=== PATIENT | female | born 1975 | race American Indian/Alaskan Native ===

== ENCOUNTER 2016-09-06 22:23 | Emergency (ER) | payer OTHER ==
[2016-09-06 22:38] VITALS: BP 170/90; PULSE 81; TEMP 98.1; BMI 35.2
--- NOTE | 2016-09-06 23:49 | PDOC ---
History of Present Illness - General Stated Complaint: RASH,ALLERGY REACTION Time Seen by Provider: 09/06/16 23:12 - History of Present Illness Initial Comments: 09/06/16 23:48 CHIEF COMPLAINT: rash HISTORY OF PRESENT ILLNESS: 41 yo F with hx of migraines presents to ED with worsening rash x 1 week. 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 I've had reaction like this before but never this bad. I came tonight because the Aquaphor stopped working and I'm really itchy." Patient denies fever, chills, nausea, vomiting, diarrhea , difficulty breathing, speaking or swallowing. Denies swelling of throat, mouth, lips, or tongue. No recent travel or sick contacts. PAST MEDICAL HISTORY: Denies past medical history FAMILY HISTORY: Denies SOCIAL HISTORY: Lives at home with . 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 Denies tobacco, alcohol, illicit drug use. ALLERGIES: latex, natural rubber, shrimp REVIEW OF SYSTEMS General/Constitutional: Denies fever or chills. Denies weakness, weight change. HEENT: Denies change in vision. Denies ear pain or discharge. Denies sore throat. Cardiovascular: Denies chest pain or shortness of breath. Respiratory: Denies cough, wheezing, or hemoptysis. Gastrointestinal: Denies nausea, vomiting, diarrhea or constipation. Denies rectal bleeding. Genitourinary: Denies dysuria, frequency, or change in urination. Musculoskeletal: Denies joint or muscle swelling or pain. Denies neck or back pain. Skin and breasts: Worsening rash x 1 week. PHYSICAL EXAM General Appearance: Well-appearing, appropriately dressed. No apparent distress , no intoxication. HEENT: EOMI, PERRLA, normal ENT inspection, normal voice, TMs normal, pharynx normal. No conjunctival pallor. No photophobia, scleral icterus. Neck: Supple. Trachea midline. No tenderness, rigidity, carotid bruit, stridor , lymphadenopathy, or thyromegaly. Respiratory/Chest: Lungs CTAB. No shortness of breath, chest tenderness, respiratory distress, accessory muscle use. No crackles, rales, rhonchi, stridor , wheezing, dullness Cardiovascular: RRR. S1, S2. No JVD, murmur, bradycardia, tachycardia. Vascular Pulses: Dorsalis-Pedis (R): 2+, Dorsalis-Pedis (L): 2+ Gastrointestinal/Abdominal: Normal bowel sounds. Abdomen soft, non-distended. No tenderness or rebound tenderness. No organomegaly, pulsatile mass, guarding , hernia, hepatomegaly, splenomegaly. Lymphatic: No adenopathy, tenderness. Musculoskeletal/Extremities: Normal inspection. FROM of all extremities, normal capillary refill. Pelvis Stable. No CVA tenderness. No tenderness to extremities, pedal edema, swelling, erythema or deformity. Integumentary: Multiple plaque-like lesions to dorsal and palmar aspect of hands bilaterally. Satellite lesions to dorsal aspect of left and right proximal forearm, shins bilaterally, and left shoulder. Appropriate color, dry, warm. No cyanosis, erythema, jaundice or rash Neurologic: gauge maker apprentice II-XII intact. Fully oriented, alert. Appropriate mood/affect. Motor strength 5/5. No appreciable EOM palsy, facial droop or sensory deficit. 09/06/16 23:53 Past History - Past Medical History Allergies/Adverse Reactions: Allergies Allergy/AdvReac Type Severity Reaction Status Date / Time Latex, Natural Rubber Allergy Verified 09/06/16 22:34 shrimp Allergy Verified 09/06/16 22:34 Home Medications: Ambulatory Orders Loratadine [Claritin] 10 mg PO DAILY #10 tablet 09/06/16 Triamcinolone 0.1% Cream [Aristocort 0.1% Cream -] 1 applic TP TID #1 tube 09/06 - Psycho/Social/Smoking Cessation Hx Suicidal Ideation: No Smoking History: Never smoked *Physical Exam - Vital Signs Last Vital Signs Temp Pulse Resp BP Pulse Ox 98.1 F 81 16 170/90 98 09/06/16 22:36 09/06/16 22:36 09/06/16 22:36 09/06/16 22:36 09/06/16 22:36 Medical Decision Making - Medical Decision Making 09/06/16 23:56 41 yo F with hx of migraines presents to ED with worsening rash. Clinical presentation consistent with contact dermatitis. Will discharge to home with topical steroid and antihistamine with close derm follow up. -Triamcinolone 0.1% cream -Claritin po Advised patient to f/u with dermatology within the next week. Advised patient of signs and symptoms for return to ED. Patient verbalized udnerstanding and agrees to plan. *DC/Admit/Observation/Transfer Diagnosis at time of Disposition: Rash and nonspecific skin eruption - Discharge Dispostion Disposition: HOME Condition at time of disposition: Stable Admit: No - Prescriptions Prescriptions: Triamcinolone 0.1% Cream [Aristocort 0.1% Cream -] 1 applic TP TID #1 tube Loratadine [Claritin] 10 mg PO DAILY #10 tablet - Referrals Referrals: Arian Landaverde MD [Primary Care Provider] - Tala Trimble MD [Staff Physician] - - Patient Instructions Printed Discharge Instructions: DI for Rash Additional Instructions: Please apply medication as prescribed and follow up with lodge attendant within the next 2-3 days. Please keep your appointment with the display carver for further evaluation of your contact allergies. If the rash spreads to your face, or you develop any swelling of the throat, lips, mouth, tongue, or if you have difficulty breathing, speaking, or swallowing, please return to the ER immediately. - Post Discharge Activity Work/School Note: Back to Work
[2016-09-06] MEDS ORDERED: diphenhydrAMINE HCL 25 MG CAPSULE (FP) PO ONE (23:59)
[2016-09-07] MEDS ORDERED: diphenhydrAMINE HCL 25 MG CAPSULE (FP) PO ONE (00:02)
== END 2016-09-07 00:10 | disposition home or self-care (01) ==
LOC: JER 22:23
DX: L23.89 Allergic contact dermatitis due to other agents (principal); Z91.040 Latex allergy status
CPT/HCPCS: 99281-25

== ENCOUNTER 2019-08-19 07:21 | Emergency (ER) | payer OTHER ==
[2019-08-19 07:56] VITALS: TEMP 99.8; BMI 36.1
[2019-08-19] MEDS ORDERED: FAMOTIDINE 20 MG TABLET PO ONE (08:32)
[2019-08-19] MEDS ORDERED: MAG HYDROX/AL HYDROX/SIMETH 30 ML UNIT-DOSE CUP PO ONE (08:32)
[2019-08-19] MEDS ORDERED: MAG HYDROX/AL HYDROX/SIMETH 30 ML UNIT-DOSE CUP ONE (08:54)
[2019-08-19] MEDS ORDERED: FAMOTIDINE 20 MG TABLET ONE (08:54)
--- NOTE | 2019-08-19 09:04 | PDOC ---
History of Present Illness - General Chief Complaint: Pain Stated Complaint: STOMACH ACHE Time Seen by Provider: 08/19/19 08:17 History Source: Patient Exam Limitations: Clinical Condition - History of Present Illness Travel History: No Initial Comments: 08/19/19 09:35 Patient with past medical history of GERD presented with complaint of 1 day history of epigastric pain and 2 episodes of loose stool. Patient daughter sick at home with gastroenteritis symptoms for same.. Patient denies nausea, vomiting, fever, chills, shortness of breath, constipation, chest pain. Patient reports taking Nexium yesterday for symptoms which has been helpful in the epigastric pain. Denies any other symptoms Timing/Duration: reports: intermittent Quality: reports: cramping Abdominal Pain Onset Location: reports: epigastric Pain Radiation: reports: no radiation Activities at Onset: reports: none Past History - Past Medical History Allergies/Adverse Reactions: Allergies Allergy/AdvReac Type Severity Reaction Status Date / Time Latex, Natural Rubber Allergy Verified 08/19/19 07:52 shrimp Allergy Verified 08/19/19 07:52 Home Medications: Ambulatory Orders Loratadine [Claritin] 10 mg PO DAILY #10 tablet 09/06/16 Triamcinolone 0.1% Cream [Aristocort 0.1% Cream -] 1 applic TP TID #1 tube 09/06 Famotidine [Pepcid -] 40 mg PO DAILY #7 tablet 08/19/19 Mag Hydrox/Aluminum Hyd/Simeth [Maalox Advanced Suspension] 30 ml PO Q8H PRN # 200 ml 08/19/19 CVA: No COPD: No - Immunization History Immunization Up to Date: Yes - Psycho Social/Smoking Cessation Hx Smoking History: Never smoked Information on smoking cessation initiated: No Hx Alcohol Use: No Drug/Substance Use Hx: No Abd/GI Specific PMHX - Complaint Specific PMHX Colitis: No Diverticulitis: No Gall Bladder Disease: No GERD: Yes Hepatitis: No Irritable Bowel Synd (IBS): No Pancreatitis: No GI Ulcer Disease: No Review of Systems - Review of Systems Able to Perform ROS?: Yes Is the patient limited Yoruba proficient: No Constitutional: No: Chills, Fever, Malaise HEENTM: No: Symptoms Reported, See HPI, Eye Pain, Blurred Vision, Tearing, Recent change in vision, Double Vision, Cataracts, Ear Pain, Ocular Prothesis, Ear Discharge, Nose Pain, Nose Congestion, Tinnitus, Nose Bleeding, Hearing Loss , Throat Pain, Throat Swelling, Mouth Pain, Dental Problems, Difficulty Swallowing, Mouth Swelling, Other Respiratory: No: Symptoms reported, See HPI, Cough, Orthopnea, Shortness of Breath, SOB with Exertion, SOB at Rest, Stridor, Wheezing, Productive cough, Hemoptysis, Other Cardiac (ROS): No: Symptoms Reported, See HPI, Chest Pain, Edema, Irregular Heart Rate, Lightheadedness, Palpitations, Syncope, Chest Tightness, Other ABD/GI: Yes: Symptoms Reported, See HPI, Abdominal cramping (epigastric). No: Abd. Pain w/ defecation, Constipated, Diarrhea, Nausea, Poor Appetite, Rectal Bleeding, Vomiting, Indigestion : No: Symptoms Reported, Urgency Musculoskeletal: No: Symptoms Reported All Other Systems: Reviewed and Negative *Physical Exam - Vital Signs Last Vital Signs Temp Pulse Resp BP Pulse Ox 99.8 F H 104 H 17 139/81 96 08/19/19 07:53 08/19/19 07:53 08/19/19 07:53 08/19/19 07:53 08/19/19 07:53 - Physical Exam 08/19/19 09:04 GENERAL: Well developed, well nourished. Awake and alert. No acute distress. HEENT: Normocephalic, atraumatic. PERRLA, EOMI. No conjunctival pallor. Sclera are non-icteric. Moist mucous membranes. Oropharynx is clear. NECK: Supple. Full ROM. CARDIOVASCULAR: Regular rate and rhythm. No murmurs, rubs, or gallops. Distal pulses are 2+ and symmetric. PULMONARY: No evidence of respiratory distress. Lungs clear to auscultation bilaterally. No wheezing, rales or rhonchi. ABDOMINAL: Soft. Non-tender. Non-distended. No rebound or guarding. No organomegaly. Normoactive bowel sounds. MUSCULOSKELETAL Normal range of motion at all joints. EXTREMITIES: No cyanosis. No clubbing. No edema. No calf tenderness. SKIN: Warm and dry. Normal capillary refill. No rashes. No jaundice. NEUROLOGICAL: Alert, awake, appropriate. Gait is normal without ataxia. PSYCHIATRIC: Cooperative. Good eye contact. Appropriate mood General Appearance: Yes: Nourished, Appropriately Dressed. No: Apparent Distress ED Treatment Course - LABORATORY CBC & Chemistry Diagram: 08/19/19 08:42 08/19/19 08:42 - RADIOLOGY Radiology Studies Ordered: Category Date Time Status ABDOMEN US -LIMITED [US] Stat Ultrasound 08/19/19 08:33 Ordered - Medications Given in the ED: ED Medications Discontinued Medications Generic Name Dose Route Start Last Admin Trade Name Freq PRN Reason Stop Dose Admin Al Hydroxide/Mg Hydroxide 30 ml 08/19/19 08:32 08/19/19 08:57 Mylanta Oral Suspension - PO 08/19/19 08:33 30 ml ONCE ONE Administration Famotidine 40 mg 08/19/19 08:32 08/19/19 08:57 Pepcid - PO 08/19/19 08:33 40 mg ONCE ONE Administration Medical Decision Making - Medical Decision Making 08/19/19 09:36 Patient with past medical history of GERD presented with complaint of 1 day history of epigastric pain and 2 episodes of loose stool. Patient daughter sick at home with gastroenteritis symptoms for same.. Patient denies nausea, vomiting, fever, chills, shortness of breath, constipation, chest pain. Patient reports taking Nexium yesterday for symptoms which has been helpful in the epigastric pain. Denies any other symptoms Clinical exam significant for mild epigastric tenderness without guarding or rebound otherwise unremarkable exam. Normal cardio exam and lungs clear to auscultation bilateral. Patient symptoms likely GERD versus gastritis versus less likely cholecystitis. CBC, CMP and lipase lab ordered. Abdominal ultrasound ordered to rule out cholecystitis. Pepcid 40 mg p.o. and Maalox 30 mL p.o. given for symptoms. Treat based on lab and imaging results 08/19/19 11:26 Abdominal ultrasound unremarkable. Patient is symptomatic now. Symptoms likely caused by GERD. Patient stable for discharge on Pepcid and Maalox PRN for abdominal discomfort with GI follow-up. Discharge - Discharge Information Problems reviewed: Yes Clinical Impression/Diagnosis: Epigastric abdominal pain, GERD without esophagitis Condition: Improved Disposition: HOME - Admission No - Additional Discharge Information Prescriptions: Famotidine [Pepcid -] 40 mg PO DAILY #7 tablet Mag Hydrox/Aluminum Hyd/Simeth [Maalox Advanced Suspension] 30 ml PO Q8H PRN # 200 ml PRN Reason: abdominal discomfort - Follow up/Referral Referrals: Arian Landaverde MD [Primary Care Provider] - Chiki Duran MD [Staff Physician] - - Patient Discharge Instructions Patient Printed Discharge Instructions: DI for Gastroesophageal Reflux Disease (GERD), GERD Diet Additional Instructions: Your blood work was normal. Your abdominal ultrasound shows no abnormality. Your symptoms likely caused by gas pain from acid. Take prescribed medication as prescribed for abdominal discomfort. Follow-up referred GI doctor if symptoms persist for more than 3 days otherwise follow-up with your primary care - Post Discharge Activity Work/Back to School Note: Back to Work
[2019-08-19 09:10] LABS: BASO % 0.2 % (0-2.0); EOS % 0.1 % (0-4.5); HEMATOCRIT 42.6 % (32.4-45.2); HEMOGLOBIN 14.5 GM/dL (10.7-15.3); LYMPH % 3.4 % (8-40); MCH 31.5 pg (25.7-33.7); MCHC 33.9 g/dl (32.0-36.0); MEAN PLT VOLUME 7.9 fl (7.5-11.1); MONO % 3.8 % (3.8-10.2); NEUT % 92.5 % (42.8-82.8); PLATELET COUNT 279 K/MM3 (134-434); RBC 4.59 M/mm3 (3.60-5.2); RDW 13.5 % (11.6-15.6); WHITE BLOOD COUNT 13.9 K/mm3 (4.0-10.0)
[2019-08-19 09:14] LABS: HYALINE CASTS 2 /lpf (0-8); URINE APPEARANCE CLEAR; URINE BACTERIA 63.6 /hpf (NEGATIVE); URINE BILIRUBIN NEGATIVE (NEGATIVE); URINE COLOR YELLOW; URINE GLUCOSE (UA) NEGATIVE (NEGATIVE); URINE KETONE TRACE (NEGATIVE); URINE LEUK ESTERASE NEGATIVE (NEGATIVE); URINE NITRITE NEGATIVE (NEGATIVE); URINE PROTEIN NEGATIVE (NEGATIVE); URINE RBC 2 /hpf (0-4); URINE UROBILINOGEN 0.2 mg/dL (0.2-1.0); URINE WBC 1 /hpf (0-5)
[2019-08-19 09:30] LABS: ALBUMIN 3.5 g/dl (3.4-5.0); BILIRUBIN,TOTAL 0.6 mg/dL (0.2-1); BLOOD UREA NITROGEN 14.4 mg/dL (7-18); CALCIUM 8.3 mg/dL (8.5-10.1); CREATININE 0.8 mg/dL (0.55-1.3); POTASSIUM 3.8 mmol/L (3.5-5.1); TOT PROT 7.2 g/dl (6.4-8.2)
[2019-08-19 11:17] LABS: ANISOCYTOSIS 1+; MACROCYTOSIS 0; PLATELET ESTIMATE NORMAL
[2019-08-19 12:05] VITALS: BP 140/95; PULSE 99
--- NOTE | 2019-08-19 12:35 | EKG ---
Test Reason : Blood Pressure : / mmHG Vent. Rate : 098 BPM Atrial Rate : 098 BPM P-R Int : 126 ms QRS Dur : 078 ms QT Int : 356 ms P-R-T Axes : 043 047 017 degrees QTc Int : 454 ms NORMAL SINUS RHYTHM POSSIBLE LEFT ATRIAL ENLARGEMENT Confirmed by MD PINKY, LYLA ([id number]) on 08/19/2019 12:35:14 PM Referred By: Confirmed By:LYLA VANCE MD
== END 2019-08-19 11:47 | disposition home or self-care (01) ==
LOC: JER 07:21
DX: K21.9 Gastro-esophageal reflux disease without esophagitis (principal); Z91.013 Allergy to seafood; Z91.040 Latex allergy status
CPT/HCPCS: 36415; 76705-TC; 80053; 81003; 83690; 84703; 85025; 87086; 93005; 93010; 99282-25